=== PATIENT | male | born 1965 | race Caucasian/White ===

== ENCOUNTER 2018-09-03 15:57 | Emergency (ER) | payer MEDICARE ==
[~2018-09-03] VITALS: Ht 170.2 cm; Wt 68.2 kg
[2018-09-03 16:15] VITALS: BP 167/123
[2018-09-03] MEDS ORDERED: ketorolac tromethamine 15mg/ml inj. IM ONE (17:20)
[2018-09-03] MEDS ORDERED: CYCL-1 PO (17:33)
--- NOTE | 2018-09-03 17:43 | NUR ---
PATIENT AMBULATED WNL TO USE PHONE IN LOBBY.
== END 2018-09-03 18:00 | disposition home or self-care (01) ==
LOC: ER 15:58
DX: G89.29 Other chronic pain (principal); M54.5 Low back pain
CPT/HCPCS: 96372; 99283; J1885